=== PATIENT | male | born 1940 | race Asian ===

== ENCOUNTER → 2017-08-20 | Outpatient (CLI) | payer OTHER | END | disposition home or self-care (01) | LOC: PNCL 07:20 | DX: M54.16 Radiculopathy, lumbar region (principal); M48.061 Spinal stenosis, lumbar region without neurogenic claudication; Z79.82 Long term (current) use of aspirin; Z79.899 Other long term (current) drug therapy | CPT/HCPCS: 99212 ==

== ENCOUNTER → 2017-09-03 | Outpatient (CLI) | payer OTHER ==
[~2017-09-03] MED LIST: IOHEXOL 180 MG/ML 10 ML VIAL.; methylPREDNISolone ACETATE 40 MG/ML VIAL.; methylPREDNISolone ACETATE 80 MG/ML VIAL.
== END ==
LOC: PNCL 07:29
DX: M54.16 Radiculopathy, lumbar region (principal); M48.061 Spinal stenosis, lumbar region without neurogenic claudication; Z79.899 Other long term (current) drug therapy; Z79.82 Long term (current) use of aspirin
CPT/HCPCS: 62323; J1030; J1040; Q9965

== ENCOUNTER → 2017-11-11 | Outpatient (CLI) | payer OTHER | END | disposition home or self-care (01) | LOC: PNCL 12:43 | DX: M54.16 Radiculopathy, lumbar region (principal); M48.061 Spinal stenosis, lumbar region without neurogenic claudication | CPT/HCPCS: G0463 ==

== ENCOUNTER → 2017-11-25 | Outpatient (CLI) | payer OTHER ==
[~2017-11-25] MED LIST changes: +LIDOCAINE 1% PF 2 ML VIAL.
== END ==
LOC: PNCL 12:46
DX: M54.16 Radiculopathy, lumbar region (principal); M48.061 Spinal stenosis, lumbar region without neurogenic claudication
CPT/HCPCS: 62323; J1030; J1040; Q9965

== ENCOUNTER → 2018-01-12 | Outpatient (CLI) | payer OTHER | END | disposition home or self-care (01) | LOC: PNCL 10:57 | DX: M54.16 Radiculopathy, lumbar region (principal); M48.061 Spinal stenosis, lumbar region without neurogenic claudication; Z79.899 Other long term (current) drug therapy | CPT/HCPCS: G0463 ==

== ENCOUNTER → 2018-05-18 | Outpatient (CLI) | payer OTHER ==
[~2018-05-18] MED LIST changes: +ASPI-482 PO; +CHOL100013 PO; +CLON0.5T11 PO; -IOHEXOL 180 MG/ML 10 ML VIAL.; +IOHEXOL 180 MG/ML 10 ML VIAL. ONE; -LIDOCAINE 1% PF 2 ML VIAL.; +SIMV20TA PO; -methylPREDNISolone ACETATE 40 MG/ML VIAL.; +methylPREDNISolone ACETATE 40 MG/ML VIAL. ONE; -methylPREDNISolone ACETATE 80 MG/ML VIAL.; +methylPREDNISolone ACETATE 80 MG/ML VIAL. ONE
--- NOTE | 2018-05-18 20:08 | PAIN ---
DATE OF SERVICE: 05/18/2018 PROGRESS NOTE FOR PAIN CLINIC DIAGNOSIS: Lumbar radiculopathy with lumbar spinal stenosis. HISTORY OF PRESENT ILLNESS: The patient is a 78-year-old male who returns for followup status post lumbar epidural steroid injection x 2, last seen for injection on 11/25/2017. The patient did very well with about 70% improvement after the injection. The patient reports the pain has been doing well and he put off his next injection for some time now. The patient reports now about 50% overall with pain in the low back and right lower extremity, mostly in the anterior lateral thigh, posterior low back radiating to the groin and sometimes anterior thigh and the medial knee on the right side. The patient reports it is aching, tingling, burning, becoming more constant; worse with walking, standing, twisting; was having very high difficulty playing golf and this has prompted him to see the Emergency Room where he was given some pain medications and muscle relaxers and anti-inflammatories for a few days and this was about a month ago. The patient reports that helped temporarily. He is still walking favoring his right lower extremity. The patient rates his pain a 4 on a scale of 10 at its worst, average and at its least and is a 4 today. The patient reports no new motor or sensory deficits and no new bowel or bladder incontinence, better after the muscle relaxants and pain medication but has stopped taking those several weeks ago because he does not like the way it makes him feel. The patient reports no new motor or sensory deficits and no bowel or bladder incontinence or other complaints. PHYSICAL EXAMINATION: VITAL SIGNS: The patient's blood pressure 165/114, pulse 88, respirations 18 and temperature 97.5 degrees Fahrenheit. Height is 6 feet 1 inch and weight is 196 pounds. GENERAL: The patient is awake, alert, oriented, appropriate and very pleasant demeanor. HEENT: Shows normocephalic and atraumatic. Extraocular movements are intact and symmetrical. Oral cavity: Mucous membranes moist and pink. Dentition is intact. NECK: Shows anterior throat supple without palpable lymphadenopathy noted. Swallow reflex is symmetrical. CHEST: Shows normal with inspection. Breath sounds clear to auscultation bilaterally. HEART: Shows S1 and S2 clear. No murmurs auscultated. ABDOMEN: Soft, nontender and nondistended. No palpable organomegaly is noted. No rebound or guarding demonstrated. BACK: Shows spine grossly in the midline. Normal-appearing thoracic kyphosis and minor flattening of the lumbar lordotic curvature. Lumbar paraspinous muscle shows symmetrical on inspection. On palpation shows some moderate tenderness but only diffusely without significant radiation. The patient shows good rotational motion both greater than 10 degrees right and left as well as extension greater than 10 degrees, forward flexion 45 degrees without difficulty or pain reported. EXTREMITIES: The patient's lower extremities show deep tendon reflexes at 2+ in the patellar, 1+ tendo-calcaneus tendons. Motor exam is strong with 5/5 dorsiflexion, extension, quadriceps and hamstring flexion is symmetrical and equal. Peripheral pulses are 1+ posterior tibia. No peripheral edema is noted. Options were discussed with the patient. The patient's old chart was reviewed as well as his current medication regimen updated. Current review of systems updated today as well. We will proceed with a third in a series of lumbar epidural steroid injection today with fluoroscopic guidance. Risks were again discussed including, but not limited to bleeding, infection, possibility of epidural hematoma and subsequent neurological compromise, dural puncture, headaches, spinal cord and/or nerve damage, side effects of steroid medication and poor results regarding pain control. The patient understands and wished to proceed. The patient will return to the clinic in approximately 2 weeks for followup, was counseled as to return appointment, activity level and side effects to be aware of. DIAGNOSIS: Lumbar radiculopathy with lumbar spinal stenosis. PROCEDURE: Lumbar epidural steroid injection, translaminar approach, L3-L4 level using C-arm fluoroscopic guidance under sterile prep and drape using local anesthetic. MEDICATION INJECTED: A total of 120 mg Depo-Medrol plus 10 mL of preservative-free normal saline and 2 mL of Isovue for contrast. CONDITION AT DISCHARGE: Stable. The patient tolerated procedure well and had no complications. LEDA HERNÁNDEZ MD DR: JENNIFER/leigh JOB#: [id number] / [id number]
== END | disposition home or self-care (01) ==
LOC: PNCL 14:08
PROVIDERS: ATTEND Anesthesiology
DX: M54.16 Radiculopathy, lumbar region (principal); M48.061 Spinal stenosis, lumbar region without neurogenic claudication; I10 Essential (primary) hypertension; Z98.890 Other specified postprocedural states
CPT/HCPCS: 62323; J1030; J1040; Q9965

== ENCOUNTER → 2018-06-10 | Outpatient (CLI) | payer OTHER ==
[~2018-06-10] MED LIST changes: -IOHEXOL 180 MG/ML 10 ML VIAL. ONE; -methylPREDNISolone ACETATE 40 MG/ML VIAL. ONE; -methylPREDNISolone ACETATE 80 MG/ML VIAL. ONE
--- NOTE | 2018-06-10 10:45 | PAIN ---
DATE OF SERVICE: 06/10/2018 PROGRESS NOTE FOR PAIN CLINIC DIAGNOSES: Lumbar radiculopathy with lumbar spinal stenosis. HISTORY OF PRESENT ILLNESS: The patient is a 78-year-old male who returns for followup status post lumbar epidural steroid injection x 3 since last injection previously in November, most recently on 05/18/2018. The patient reports he has 100% improvement of his pain for the first 3 weeks. The pain is returning now in the low back and into the right lower extremity as it was previously, mostly in the anterior thigh across the low back and the right side, some in the hip as well but mostly medial thigh, medial knee radiating to the right lower extremity. The patient reports no new motor or sensory deficits and no new bowel or bladder incontinence. He reports his pain is a 1 on a scale of 10 at its worst, 1 on average, 1 at its least and is a 1 today. The patient reports it is aching, sharp, shooting, radiating again beginning to return, has been about 3 weeks with near 100% improvement but is noticing it more when he is walking, standing, change in positions. He has been playing golf with increasing activity with distance walking and doing activities with recreational activities, household activities, mowing and clearing weeds with his mower with greater ease and comfort. The patient reports again the pain returning now on the right side in the lateral anterior medial thigh, medial knee, was becoming more noticeable. No new motor or sensory deficits. The patient reports no bowel or bladder incontinence or other complaints, sleeping well at night, much better with sitting or lying down. PHYSICAL EXAMINATION: VITAL SIGNS: The patient's blood pressure 170/98, pulse 80, respirations 18 and temperature 97.5 degrees Fahrenheit. Height 6 feet 1 inch and weight is 199 pounds. GENERAL: The patient is awake, alert, oriented, appropriate and very pleasant demeanor. HEENT: Head shows normocephalic and atraumatic. Extraocular movements are intact and symmetrical. Oral cavity, mucous membranes are moist and pink. Dentition is intact. NECK: Shows anterior throat supple without palpable lymphadenopathy noted. Swallow reflex symmetrical. CHEST: Shows normal on inspection. Breath sounds clear to auscultation bilaterally. HEART: Shows S1 and S2 clear. No murmurs auscultated. ABDOMEN: Soft, nontender and nondistended. No palpable organomegaly is noted. No rebound or guarding demonstrated. BACK: Shows spine grossly in the midline. Normal appearing thoracic kyphosis and some minor flattening of lumbar lordotic curvature. Lumbar paraspinous muscle shows symmetrical on inspection and palpation shows some moderate tenderness in the inferior aspect of the paraspinous muscles only without radiation. The patient has good rotational motion both laterally as well as extension and flexion without difficulty. EXTREMITIES: Lower extremities showed deep tendon reflex is 2+ in the patellar, 1+ tend-calcaneus tendon and equal. Motor exam is strong with 5/5 dorsiflexion, extension, quadriceps and hamstring flexion bilaterally. Peripheral pulses are 1+ posterior tibial. No peripheral edema is noted. Options were discussed with the patient. The patient's old chart was reviewed as well as his current medication regimen updated. Current review of systems updated today as well and we will preauthorize the patient for a second lumbar epidural steroid injection with fluoroscopic guidance. The patient with still persistent L3-L4 dermatomal distribution of radiculopathy on the right side as previous, significantly improved after the last injection for about 3-weeks, now returning with radicular pain in the left L3-L4 distribution. We will plan on the L3-L4 lumbar epidural steroid injection on his return once preauthorization is obtained and plan for him to return in about 2 weeks and plan on second lumbar epidural steroid injection at that time. LEDA HERNÁNDEZ MD DR: JENNIFER/leigh JOB#: [id number] / [id number]
== END | disposition home or self-care (01) ==
LOC: PNCL 10:00
PROVIDERS: ATTEND Anesthesiology
DX: M54.16 Radiculopathy, lumbar region (principal); M48.061 Spinal stenosis, lumbar region without neurogenic claudication; Z79.899 Other long term (current) drug therapy
CPT/HCPCS: G0463

== ENCOUNTER → 2018-09-13 | Outpatient (CLI) | payer OTHER ==
--- NOTE | 2018-09-14 01:54 | PAIN ---
DATE OF SERVICE: 09/13/2018 PROGRESS NOTE FOR PAIN CLINIC DIAGNOSES: Lumbar radiculopathy with lumbar spinal stenosis. HISTORY OF PRESENT ILLNESS: The patient is a 78-year-old male who returns for followup status post lumbar epidural steroid injection x 1. The patient did very well, still returns with 100% improvement on his low back and right leg. The patient reports the pain has stayed away. He has been walking up to 50 miles a week now for the past few weeks and has had a couple times where the knee on the right side is feel like it is giving out but no significant pain. The patient reports he is doing quite well, otherwise, has only happened once and it was about a week ago and he has walked since that time to same distances without difficulty. The patient reports he is feeling very well. He is sleeping well at night and has been increasing his activity, walking and doing work activities, household activities, recreational activities and playing golf with greater ease and comfort. The patient reports pain is 0 in all categories, average, worst and least and is a 0 today. The patient reports no new motor or sensory deficits and no new bowel or bladder incontinence or other complaints. He is quite pleased with his progress thus far. PHYSICAL EXAMINATION: VITAL SIGNS: The patient's blood pressure 172/112, pulse 79, respirations 16, temperature 97.7 degrees Fahrenheit and weight is 203 pounds. GENERAL: The patient is awake, alert, oriented, appropriate and very pleasant demeanor. HEENT: Head shows normocephalic and atraumatic. Extraocular movements are intact and symmetrical. Oral cavity: Mucous membranes moist and pink. Dentition is intact. NECK: Shows anterior throat supple without palpable lymphadenopathy noted. Swallow reflex symmetrical. CHEST: Shows normal on inspection. Breath sounds are clear to auscultation bilaterally. HEART: Shows S1 and S2 clear. No murmurs auscultated. ABDOMEN: Soft, nontender and nondistended. No palpable organomegaly is noted. No rebound or guarding demonstrated. BACK: Shows spine grossly in the midline. Normal appearing thoracic kyphosis and some minor flattening of lumbar lordotic curvature. Lumbar paraspinous muscle shows symmetrical on inspection. On palpation shows some moderate tenderness diffusely but only very minimal in the lower lumbar distribution. The patient has good rotational motion of lumbar spine, both laterally as well as extension and flexion without difficulty. No tenderness over the sacrum and sacroiliac regions or the spinous processes. EXTREMITIES: The patient's lower extremities show deep tendon reflexes 2+ in the patellar, 1+ tendo-calcaneus tendons are equal. Motor exam is strong with 5/5 dorsiflexion, extension, quadriceps and hamstring flexion and symmetrical. Peripheral pulses are 1+ posterior tibial. No peripheral edema is noted bilaterally. Options were discussed with the patient. The patient's old chart was reviewed as well as his current medication regimen updated. Current review of systems updated today as well. We will hold on any further injections at this time as the patient is doing quite well with the current regimen of walking and exercise. The patient informed that the pain begins to return significantly, have radicular component fairly significant at L3-L4 dermatomal distribution of the right leg. We will have him return on as needed basis at that time for second injection. The patient will continue activity as tolerated and return on as needed basis at this time. LEDA HERNÁNDEZ MD DR: JENNIFER/leigh JOB#: [id number] / [id number]
== END | disposition home or self-care (01) ==
LOC: PNCL 11:00
PROVIDERS: ATTEND Anesthesiology
DX: M48.061 Spinal stenosis, lumbar region without neurogenic claudication (principal); M54.16 Radiculopathy, lumbar region
CPT/HCPCS: G0463

== ENCOUNTER → 2018-10-19 | Outpatient (CLI) | payer OTHER ==
[~2018-10-19] MED LIST changes: +IOHEXOL 180 MG/ML 10 ML VIAL. ONE; +methylPREDNISolone ACETATE 40 MG/ML VIAL. ONE; +methylPREDNISolone ACETATE 80 MG/ML VIAL. ONE
--- NOTE | 2018-10-19 20:36 | PAIN ---
DATE OF SERVICE: 10/19/2018 DIAGNOSES: Lumbar radiculopathy with lumbar spinal stenosis. HISTORY OF PRESENT ILLNESS: The patient is a 78-year-old male who returns for followup status post lumbar epidural steroid injection x 1 in 05/2018. The patient did very well near 100% improvement. The pain has been returning now in the low back, right lower extremity and mostly in the anterior thigh, medial thigh, medial knee on the right side, worse with activity, standing, walking and playing golf. The patient reports until the last 2-3 weeks, it was near 100% improvement. The patient reports no new motor or sensory deficits, no new bowel or bladder incontinence. The patient rates his pain level at a 0 on a scale of 10 currently and has been well controlled over the past week or so, but he has been doing much less activity as well. The patient reports it does not awaken him from sleep at night, does not cause any new motor or sensory deficits. The patient describes the pain as tingling, going in the right foot at times and shooting intermittently as well as across the low back, which is dull and achy. PHYSICAL EXAMINATION: VITAL SIGNS: Today, the patient's blood pressure 156/97, pulse 76, respirations are 18, temperature is 97.3 degrees Fahrenheit, height 6 feet 2 inches, weight is 199 pounds. GENERAL: The patient is awake, alert, oriented, appropriate, very pleasant demeanor. HEENT: Shows normocephalic, atraumatic. Extraocular movements are intact and symmetrical. Oral cavity, mucous membranes are moist and pink. Dentition is intact. NECK: Shows anterior throat supple without palpable lymphadenopathy noted. Swallow reflex is symmetrical. CHEST: Shows normal with inspection. Breath sounds clear to auscultation bilaterally. HEART: Shows S1, S2 clear. No murmurs auscultated. ABDOMEN: Soft, nontender, nondistended. No palpable organomegaly is noted. No rebound or guarding demonstrated. BACK: Shows spine grossly in the midline. Normal appearing thoracic kyphosis and lumbar lordotic curvature. Lumbar paraspinous musculature shows symmetrical on inspection, on palpation shows some moderate tenderness diffusely without radiation. The patient has good rotational motion of lumbar spine, both laterally as well as extension and flexion without significant pain reported. EXTREMITIES: The patient's lower extremities show deep tendon reflexes at 2+ in the patellar, 1+ tendo-calcaneus tendons. Motor exam is strong with 5/5 dorsiflexion, extension, quadriceps and hamstring flexion and symmetrical. Peripheral pulses are 1+ posterior tibia. No peripheral edema is noted. Options were discussed with the patient. The patient's old chart was reviewed as his current medication regimen and updated. Current review of systems is updated today as well. We will proceed with a second in the series of lumbar epidural steroid injection today with fluoroscopic guidance. Risks were again discussed including, but not limited to bleeding, infection, possibility of epidural hematoma, subsequent neurological compromise, dural puncture, headaches, spinal cord and/or nerve damage, side effects of steroid medication and poor results regarding pain control. The patient understands and wished to proceed. The patient will return to clinic in approximately 2 weeks for followup, was counseled on return appointment, activity level and side effects to be aware of. DIAGNOSES: Lumbar radiculopathy with lumbar spinal stenosis. PROCEDURE: Lumbar epidural steroid injection, translaminar approach at L3-L4 level using C-arm fluoroscopic guidance under sterile prep and drape using local anesthetic. MEDICATION INJECTED: A total of 120 mg Depo-Medrol plus 10 mL of preservative-free normal saline and 2 mL of contrast. CONDITION AT DISCHARGE: Stable. The patient tolerated procedure well, had no complications. LEDA HERNÁNDEZ MD DR: JENNIFER/leigh JOB#: [id number] / [id number]
== END | disposition home or self-care (01) ==
LOC: PNCL 09:19
PROVIDERS: ATTEND Anesthesiology
DX: M48.061 Spinal stenosis, lumbar region without neurogenic claudication (principal); M54.16 Radiculopathy, lumbar region
CPT/HCPCS: 62323; J1030; J1040; Q9965

== ENCOUNTER → 2020-06-14 | Outpatient (CLI) | payer MEDICARE, OTHER ==
[~2020-06-14] MED LIST changes: +CLON-77 PO; -CLON0.5T11 PO; +IBUP-1027 PO; -IOHEXOL 180 MG/ML 10 ML VIAL. ONE; +TAMS0.4C97 PO; -methylPREDNISolone ACETATE 40 MG/ML VIAL. ONE; -methylPREDNISolone ACETATE 80 MG/ML VIAL. ONE
--- NOTE | 2020-06-14 11:27 | PDOC ---
Progress Note - Pain Clinic Date of Service: DOS: DATE: 06/14/20 TIME: 11:23 Diagnosis: Dx: Lumbar radiculopathy with lumbar spinal stenosis History or Present Illness: HPI: 80-year-old male returns follow-up status post lumbar epidural steroid injections most recently October 2018. Patient did very well with about a 85% improvement overall for about a year to year and a half patient reports pain returning now over the past 3 to 4 weeks in the low back and into the right lower extremity as it had previously posterior gluteus posterior lateral thigh anterior thigh anterior medial thigh medial lower leg into the calf on the medial aspect as well. Patient reports no recent injury or accident patient ports pain is worse with walking standing changing positions better with sitting or laying down generally is not awakening from sleep at night patient reports is a 9 on scale 10 is worse in the past weeks 5-9 on average and a 3 at its least and is a 7 today. Patient reports sharp and shooting in the low back right lower extremity can be severe again it comes and goes with activity much worse with walking standing changing positions. Patient continues to do physical therapy stretches and strengthening on his own daily. Patient also is undergoing radiation treatment for prostate cancer which has recurred 25 years later. Patient reports no new motor or sensory deficits no new bowel or bladder incontinence or other complaints at this time. Physical Exam: VS: Blood pressure is 162/105 pulse 77 respirations 16 temperature 97.4 F height is 6 feet 2 inches weight is 197 pounds PE: PHYSICAL EXAMINATION: GENERAL: The patient is awake, alert, oriented, appropriate, very pleasant demeanor HEENT: Shows normocephalic, atraumatic. Extraocular movements are intact and symmetrical. Oral cavity: Mucous membranes moist and pink. Dentition is intact. NECK: Shows anterior throat supple without palpable lymphadenopathy noted. Swallow reflex symmetrical. CHEST: Shows normal on inspection. Breath sounds are clear bilaterally, no rales rhonchi or wheezes auscultated. HEART: Shows S1, S2 clear. No murmurs auscultated. ABDOMEN: Soft, nontender, nondistended, obese. No palpable organomegaly is noted. No rebound or guarding demonstrated. BACK: Shows spine grossly in the midline. Normal-appearing cervical lordotic curvature. There is slightly increased thoracic kyphosis, some minor flattening of the lumbar lordotic curvature. Lumbar paraspinous muscles show symmetrical on inspection, on palpation shows some moderate tenderness diffusely throughout the upper, middle and lower distribution of the paraspinous muscles bilaterally and also into the lower thoracic paraspinous musculature, firm and tender, but without specific trigger points, without radiation of pain. The patient has good rotational motion of the lumbar spine, both laterally as well as extension and flexion without significant difficulty. No tenderness over the spinous processes, sacrum or sacroiliac regions. EXTREMITIES: Lower extremities show deep tendon reflexes 2+ in the patellar and tendo calcaneus tendons. Motor exam is 4 on a scale of 5 with right dorsifle xion, extension, quadriceps and hamstring flexion and 5/5 on the left. Peripheral pulses are 1+ posterior tibial. No peripheral edema is noted bilaterally. Lower extremities are warm and dry to touch, equal in color and appearance. SKIN: Shows warm and dry, good turgor. No edema. No sores, rashes or bruising throughout. Procedure: Procedure: Options were discussed with the patient. Patient chart reviews his current medication regimen updated current review of systems updated today as well. We will preauthorize patient for lumbar epidural steroid injection he has clinical L 3-4 radicular pain on the right side. Patient will continue with stretching strength exercises as well as oral analgesics and anti-inflammatories as directed follow-up for translaminar L3-4 level lumbar epidural steroid injection once approved. Medication Injected: Med Injected: None Condition at Discharge: Condition at Discharge: Condition at discharge is stable. LEDA HERNÁNDEZ MD Jun 14, 2020 11:27
== END | disposition home or self-care (01) ==
LOC: PNCL 10:36
PROVIDERS: ATTEND Anesthesiology
DX: M48.061 Spinal stenosis, lumbar region without neurogenic claudication (principal); M54.16 Radiculopathy, lumbar region; Z79.899 Other long term (current) drug therapy
CPT/HCPCS: G0463

== ENCOUNTER → 2020-06-28 | Outpatient (CLI) | payer MEDICARE ==
[~2020-06-28] MED LIST changes: +IOHEXOL 180 MG/ML 10 ML VIAL. ONE; +methylPREDNISolone ACETATE 40 MG/ML VIAL. ONE; +methylPREDNISolone ACETATE 80 MG/ML VIAL. ONE
--- NOTE | 2020-06-28 10:38 | PDOC ---
Progress Note - Pain Clinic Date of Service: DOS: DATE: 06/28/20 TIME: 10:36 Diagnosis: Dx: Lumbar radiculopathy with lumbar spinal stenosis History or Present Illness: HPI: 80-year-old male returns to follow-up status post evaluation and preauthorization with insurance provider for lumbar epidural steroid injection. Patient is obtained this would like to proceed today. Patient reports still sig nificant pain in the low back and right lower extremity posterior gluteus posterior lateral thigh anterior thigh anterior medial thigh medial knee and medial and anterior lower leg to the ankle. Patient describes pain as aching sharp dull tingling shooting with some numbness in the right leg as well. Patient reports his pain is a 5 on a scale of 10 at all times worst least an ave rage in the last week and is a 5 today. Patient reports no new motor or sensory deficits no new bowel or bladder incontinence or other complaints. Patient continues with daily radiation therapy for prostate cancer. Physical Exam: VS: Blood pressure is 152/100 pulse 85 respirations 18 temperature 97.6 F height is 6 feet 2 inches weight is 194 pounds PE: PHYSICAL EXAMINATION: GENERAL: The patient is awake, alert, oriented, appropriate, very pleasant demeanor HEENT: Shows normocephalic, atraumatic. Extraocular movements are intact and symmetrical. Oral cavity: Mucous membranes moist and pink. NECK: Shows anterior throat supple without palpable lymphadenopathy noted. Swallow reflex symmetrical. CHEST: Shows normal on inspection. Breath sounds are clear bilaterally. HEART: Shows S1, S2 clear. No murmurs auscultated. ABDOMEN: Soft, nontender, nondistended, obese. No palpable organomegaly is noted. No rebound or guarding demonstrated. BACK: Shows spine grossly in the midline. Normal-appearing cervical lordotic curvature. There is slightly increased thoracic kyphosis, some minor flattening of the lumbar lordotic curvature. Lumbar paraspinous muscles show symmetrical on inspection, on palpation shows some moderate tenderness diffusely throughout the upper, middle and lower distribution of the paraspinous muscles, but without specific trigger points, without radiation of pain. The patient has good rotational motion of the lumbar spine, both laterally as well as extension and flexion without significant difficulty. EXTREMITIES: Lower extremities show deep tendon reflexes 2+ in the patellar and tendo calcaneus tendons. Motor exam is 4 on a scale of 5 with right dorsiflexion, extension, quadriceps and hamstring flexion and 5/5 on the left. Peripheral pulses are 1+ posterior tibial. No peripheral edema is noted bilaterally. Lower extremities are warm and dry to touch, equal in color and appearance. SKIN: Shows warm and dry, good turgor. No edema. No sores, rashes or bruising throughout. Procedure: Procedure: Options were discussed with the patient. Patient will chart reviews his current medication regimen updated current review of systems updated today as well. We will proceed with a lumbar epidural steroid injection today with fluoroscopic guidance. Risks were discussed including but not limited to: Bleeding, infection, possibility of epidural hematoma and subsequent neurological compromise, dural puncture, headaches, spinal cord and/or nerve damage, side effects of steroid medication, and poor results regarding pain control. Patient understands and wished to proceed. Patient return to clinic in approximate 2 weeks for follow-up, was counseled as to return appointment activity level and side effects be aware of. Medication Injected: Med Injected: Procedure is lumbar epidural steroid injection under local anesthetic using sterile prep and drape at the L3-4 level using C-arm fluoroscopic guidance in both AP and lateral views medications injected is 120 mg Depo-Medrol + 10 mL preservative-free normal saline and 2 mL contrast- condition at discharge is stable patient tolerated procedure well had no complications. Condition at Discharge: Condition at Discharge: Condition at discharge stable, patient tolerated the procedure well and had no complications. LEDA HERNÁNDEZ MD Jun 28, 2020 10:38
== END | disposition home or self-care (01) ==
LOC: PNCL 10:01
PROVIDERS: ATTEND Anesthesiology
DX: M48.061 Spinal stenosis, lumbar region without neurogenic claudication (principal); M54.16 Radiculopathy, lumbar region; Z79.899 Other long term (current) drug therapy
CPT/HCPCS: 62323; J1030; J1040; Q9965

== ENCOUNTER → 2020-09-27 | Outpatient (CLI) | payer MEDICARE ==
[~2020-09-27] MED LIST changes: -IOHEXOL 180 MG/ML 10 ML VIAL. ONE; -methylPREDNISolone ACETATE 40 MG/ML VIAL. ONE; -methylPREDNISolone ACETATE 80 MG/ML VIAL. ONE
--- NOTE | 2020-09-27 08:06 | PDOC ---
Progress Note - Pain Clinic Date of Service: DOS: DATE: 09/27/20 TIME: 08:02 Diagnosis: Dx: Lumbar radiculopathy with lumbar spinal stenosis History or Present Illness: HPI: 80-year-old male returns for follow-up status post lumbar epidural steroid injection June 28, 2020. Patient reports he did very well 95% improvement until a few days ago he was moving some furniture and felt some pain in his low back and right lower extremity that he had previously and the pain is radiating the posterior gluteus lateral thigh anterior thigh medial thigh medial knee and medial lower leg patient reports it slightly increasing over the past few days has been very careful with any more activity rates the pain is a 7 on scale 10 is worse over the past week for an average 1 its least is a 5 today patient reports that sharp and aching in the back radiating shooting can be severe and constant in the right leg with weightbearing standing or walking patient reports beginning awakening from sleep at night every 2-3 hours until a few days ago he was doing great with distance walking doing household activities travel with greater ease and comfort no new motor or sensory deficits no new bowel or bladder complaints. Physical Exam: VS: Blood pressure 145/82 pulse 78 respirations 18 temperature 97 weight is Fahrenheit height is 6 feet 2 inches weight is 198 pounds PE: PHYSICAL EXAMINATION: GENERAL: The patient is awake, alert, oriented, appropriate, very pleasant demeanor HEENT: Shows normocephalic, atraumatic. Extraocular movements are intact and symmetrical. Oral cavity: Mucous membranes moist and pink. NECK: Shows anterior throat supple without palpable lymphadenopathy noted. Swallow reflex symmetrical. CHEST: Shows normal on inspection. Breath sounds are clear bilaterally, no rales or rhonchi. HEART: Shows S1, S2 clear. No murmurs auscultated. ABDOMEN: Soft, nontender, nondistended, obese. No palpable organomegaly is noted. No rebound or guarding demonstrated. BACK: Shows spine grossly in the midline. Normal-appearing cervical lordotic curvature. There is slightly increased thoracic kyphosis, some minor flattening of the lumbar lordotic curvature. Lumbar paraspinous muscles show symmetrical on inspection, on palpation shows some moderate tenderness diffusely throughout the upper, middle and lower distribution of the paraspinous muscles without specific trigger points, without radiation of pain. The patient has good rotational motion of the lumbar spine, both laterally as well as extension and flexion without significant difficulty. EXTREMITIES: Lower extremities show deep tendon reflexes 2+ in the patellar and tendo calcaneus tendons. Motor exam is 4 on a scale of 5 with right dorsiflexion, extension, quadriceps and hamstring flexion and 5/5 on the left. Peripheral pulses are 1+ posterior tibial. No peripheral edema is noted bilaterally. Lower extremities are warm and dry. SKIN: Shows warm and dry, good turgor. No edema. No sores, rashes or bruising throughout. Procedure: Procedure: Options were discussed with the patient. Patient chart was reviews her current medication regimen updated current review of systems updated today as well. We will preauthorize patient for lumbar epidural steroid injections very well for the last injection for several months following the injection but 95% improvement in the right lower extremity with radicular pain following an L3-4 dermatomal distribution on the right. Patient will continue with stretching strength exercises also taking oral analgesics as currently we will wait for preauthorization and plan on translaminar approach at L3-4 level lumbar epidural steroid injection at that time. Medication Injected: Med Injected: None Condition at Discharge: Condition at Discharge: Condition at discharge is stable. LEDA HERNÁNDEZ MD Sep 27, 2020 08:06
== END | disposition home or self-care (01) ==
LOC: PNCL 07:52
PROVIDERS: ATTEND Anesthesiology
DX: M48.061 Spinal stenosis, lumbar region without neurogenic claudication (principal); M54.16 Radiculopathy, lumbar region; Z79.899 Other long term (current) drug therapy
CPT/HCPCS: G0463

== ENCOUNTER → 2020-10-11 | Outpatient (CLI) | payer MEDICARE ==
[~2020-10-11] MED LIST changes: +IOHEXOL 180 MG/ML 10 ML VIAL. ONE; +methylPREDNISolone ACETATE 40 MG/ML VIAL. ONE; +methylPREDNISolone ACETATE 80 MG/ML VIAL. ONE
--- NOTE | 2020-10-11 09:14 | PDOC ---
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 Patient reports pain low back right lower extremity posterior gluteus posterior lateral thigh lateral anterior thigh anteromedial thigh as previously which is walking and standing better with sitting or laying down does not awaken from sleep at night described as aching and dull sometimes radiating shooting in the right leg patient reports a 3 on scale 10 at all times average worst and least over the past week is a 3 today patient reports no new motor or sensory deficits no new bowel or bladder i ncontinence did quite a bit better after his last injection until about 2 weeks the pain began to return prescribed. Patient reports no new motor or sensory deficits no bowel or bladder incontinence or other complaints. Physical Exam: VS: Blood pressure is 142/87 pulse 74 respirations 18 temperature 97.5 F height is 6 foot 2 inches weight is 201 pounds PE: PHYSICAL EXAMINATION: GENERAL: The patient is awake, alert, oriented, appropriate, very pleasant demeanor HEENT: Shows normocephalic, atraumatic. Extraocular movements are intact and symmetrical. Oral cavity: Mucous membranes moist and pink. Dentition is intact. NECK: Shows anterior throat supple without palpable lymphadenopathy noted. Swallow reflex symmetrical. CHEST: Shows normal on inspection. Breath sounds are clear bilaterally, no rales or rhonchi. HEART: Shows S1, S2 clear. No murmurs auscultated. ABDOMEN: Soft, nontender, nondistended, obese. No palpable organomegaly is noted. No rebound or guarding demonstrated. BACK: Shows spine grossly in the midline. Normal-appearing cervical lordotic curvature. There is slightly increased thoracic kyphosis, some flattening of the lumbar lordotic curvature. Lumbar paraspinous muscles show symmetrical on inspection, on palpation shows some moderate tenderness diffusely throughout the upper, middle and lower distribution of the paraspinous muscles without specific trigger points, without radiation of pain. The patient has good rotational motion of the lumbar spine, both laterally as well as extension and flexion without significant difficulty. No tenderness over the spinous processes, sacrum or sacroiliac regions. EXTREMITIES: Lower extremities show deep tendon reflexes 2+ in the patellar and tendo calcaneus tendons. Motor exam is 4 on a scale of 5 with right dorsiflexion, extension, quadriceps and hamstring flexion and 5/5 on the left. Peripheral pulses are 1+ posterior tibial. No peripheral edema is noted bilaterally. Lower extremities are warm and dry. SKIN: Shows warm and dry, good turgor. No edema. No sores, rashes or bruising throughout. Procedure: Procedure: Options were discussed the patient. Patient's old chart reviewed his current medication regimen updated current review of systems updated today as well. We will proceed with a lumbar epidural steroid injection today third in the series of fluoroscopic guidance. Risks were discussed including but not limited to: Bleeding, infection, possibility of epidural hematoma and subsequent neurological compromise, dural puncture, headaches, spinal cord and/or nerve damage, side effects of steroid medication, and poor results regarding pain control. Patient understands and wished to proceed. She will return to clinic in approximate 2 weeks for follow-up, was counseled as return appointment activity level and side effects to be aware of. Medication Injected: Med Injected: Procedure is lumbar epidural steroid injection under local anesthetic using sterile prep and drape at the L3-4 level using C-arm fluoroscopic guidance in both AP and lateral views medications injected is 120 mg Depo-Medrol + 10 mL preservative-free normal saline and 2 mL contrast- condition at discharge is stable patient tolerated procedure well had no complications. Condition at Discharge: Condition at Discharge: Condition at discharge stable, patient already procedure well and had no complications. LEDA HERNÁNDEZ MD October 11, 2020 09:14
--- NOTE | 2020-10-11 09:14 | PDOC4 ---
PROCEDURE Procedure Patient was consented for lumbar epidural steroid injection. Risks were dis cussed including but not limited to: Bleeding, infection, possibility of epidural hematoma and subsequent neurological compromise, dural puncture, headaches, spinal cord and/or nerve damage, side effects of steroid medication, and poor results regarding pain control. Patient understands and wished to proceed. Procedure is lumbar epidural steroid injection under local anesthetic using sterile prep and drape at the L3-4 level using C-arm fluoroscopic guidance in both AP and lateral views medications injected is 120 mg Depo-Medrol + 10 mL preservative-free normal saline and 2 mL contrast- condition at discharge is stable patient tolerated procedure well had no complications. LEDA HERNÁNDEZ MD October 11, 2020 09:14
== END | disposition home or self-care (01) ==
LOC: PNCL 08:19
PROVIDERS: ATTEND Anesthesiology
DX: M51.16 Intervertebral disc disorders with radiculopathy, lumbar region (principal); M48.061 Spinal stenosis, lumbar region without neurogenic claudication; Z79.899 Other long term (current) drug therapy; Z98.890 Other specified postprocedural states
CPT/HCPCS: 62323; J1030; J1040; Q9965